=== PATIENT | male | born 2000 ===

== ENCOUNTER 2025-04-11 15:01 | Emergency (ER) | payer SELFPAY ==
[2025-04-11 15:44] VITALS: BP 130/82; PULSE 114; RESP 16; TEMP 36.6; O2SAT 99
--- NOTE | 2025-04-11 17:37 | ED_ITS ---
HPI - Male Genitourinary General Chief complaint: Urogenital-Male Stated complaint: requesting UA concern for bladder infection Focused HPI: 24 y/o M presents to the ED for dysuria, suprapubic pressure, urinary frequency and urgency for the past couple of days. Pt states he is concerned he has a bladder infection and wants his urine checked. He denies fever, nausea vomiting, flank pain, penile discharge, scrotal or testicular pain. He states he has never been sexually active and denies possibility of STDs. GENERAL: Well-appearing, well-nourished, and in no acute distress. HEAD: Normocephalic, atraumatic. CHEST: Clear to auscultation. ?No respiratory distress. HEART: Regular rate and rhythm.? NEURO: ?Alert and oriented x3. Patient screened in triage and initial orders placed.? ?Additional care and disposition to be based upon?diagnostic testing and treatment. Related Data Allergies Allergy/AdvReac Type Severity Reaction Status Date / Time No Known Allergies Allergy Verified 04/11/25 15:48 Course Vital Signs Vital signs: Vital Signs Temperature 97.8 F 04/11/25 15:44 Pulse Rate 114 H 04/11/25 15:44 Respiratory Rate 16 04/11/25 15:44 Blood Pressure 130/82 04/11/25 15:44 Pulse Oximetry 99 04/11/25 15:44 Oxygen Delivery Room Air 04/11/25 15:44 Temperature 98 F 04/11/25 17:50 Pulse Rate 113 H 04/11/25 17:50 Respiratory Rate 18 04/11/25 17:50 Blood Pressure 141/98 H 04/11/25 17:50 Pulse Oximetry 100 04/11/25 17:50 Oxygen Delivery Room Air 04/11/25 15:44 MDM - Male Genitourinary Lab Data Labs: Lab Results 04/11/25 Range/Units 17:46 Urine Color Cancelled Urine Appearance Cancelled Urine pH Cancelled Ur Specific [place] Cancelled Urine Protein Cancelled Urine Glucose (UA) Cancelled Urine Ketones Cancelled Ur Blood (Man) Cancelled Urine Nitrate Cancelled Urine Bilirubin Cancelled Urine Urobilinogen Cancelled Add Ur Microanalysis Cancelled Leukocyte Esterase Rfl Cancelled Urine RBC Cancelled Urine WBC Cancelled Urine WBC Clumps Cancelled Ur Squamous Epith Cells Cancelled Ur Transition Epith Cell Cancelled Ur Renal Epithelial Cell Cancelled [place] Biurate Crystals Cancelled Calcium Carbonate Cryst Cancelled Calcium Phosphate Cryst Cancelled Calcium Oxalate Crystal Cancelled Leucine Crystals Cancelled Cystine Crystals Cancelled Uric Acid Crystals Cancelled Triple Phos Crystals Cancelled Sulfonamide Crystals Cancelled Cholesterol Crystals Cancelled [place] Crystals Cancelled Tyrosine Crystals Cancelled Hippuric Acid Crystals Cancelled Bilirubin Crystals Cancelled Other Crystals Cancelled Amorphous Sediment Cancelled Other Sediment Cancelled Urine Bacteria Cancelled Urine Casts Cancelled Cellular Casts Cancelled Epithelial Casts Cancelled Fatty Casts Cancelled Hyaline Casts Cancelled Granular Casts Cancelled Waxy Casts Cancelled Broad Casts Cancelled RBC Casts Cancelled WBC Casts Cancelled Urine Starch Cancelled Urine Mucus Cancelled Urine Trichomonas Cancelled Urine Yeast (Budding) Cancelled Ur Oval Fat Bodies Cancelled Sperm Presence Cancelled Discharge Plan Discharge Clinical Impression: Dysuria Patient Disposition: Elopement After Seen by Prov Patient Language: Portuguese Follow-up/Referrals: PHYSICIAN,CONTROL SYSTEMS ENGINEER [Primary Care Provider] -
[2025-04-11 17:50] VITALS: BP 141/98; PULSE 113; RESP 18; TEMP 36.6; O2SAT 100
--- NOTE | 2025-04-11 19:48 | PC.NURSE ---
Pt. pulled into triage room. [employer] assistant principal used to tell the pt. that per the lab, there was stool in his urine sample so that urine test could not be completed. Pt. educated that a new urine sample is needed. Pt. states he does not want any further tests and is leaving. Pt. A&Ox4, ambulatory with a steady gait. Pt. seen walking out of ER doors.
== END 2025-04-11 21:25 | disposition left against medical advice (07) ==
LOC: ANHED 21:23
PROVIDERS: Emergency Provider Physician Assistant
DX: R30.0 Dysuria (principal)
CPT/HCPCS: 99199; 99281